=== PATIENT | male | born 1970 | race Caucasian/White ===

== ENCOUNTER 2022-09-07 08:45 | Outpatient (CLI) | payer BC, SELFPAY ==
[2022-09-07 13:50] LABS: Albumin* 4.4 g/dL (3.3-5.0); Chloride* 105 mmol/L (96-114); Potassium* 4.3 mmol/L (3.6-5.1); Sodium* 140 mmol/L (135-149)
[2022-09-07 13:53] LABS: Alanine Aminotransferase* 43 U/L (4-50); Alkaline Phosphatase* 81 U/L (40-150); Aspartate Amino Transferase* 30 U/L (12-35); Bilirubin Total* 0.8 mg/dL (0.1-1.5); Blood Urea Nitrogen* 13 mg/dL (7-30); Calcium* 9.3 mg/dL (8.4-10.6); Carbon Dioxide* 25 mmol/L (20-32); Cholesterol* 170 mg/dL (90-199); Creatinine* 0.8 mg/dL (0.5-1.5); Estimated Glomerular Filt Rate 106 ml/min; Glucose* 100 mg/dL (60-115)
[2022-09-08 14:17] LABS: HDL Cholesterol* 34 mg/dL (>=40); Triglycerides* 122 mg/dL (40-149)
[2022-09-08 15:05] LABS: LDL Cholesterol Calculated 112 mg/dL (<100)
== END 2022-09-07 08:46 | disposition home or self-care (01) ==
PROVIDERS: PCP Family Medicine; Visit Provider Physician Assistant Medical
DX: E78.5 Hyperlipidemia, unspecified (principal)
CPT/HCPCS: 80053; 80061; 82465

== ENCOUNTER 2022-09-29 14:49 | Outpatient (CLI) | payer BC, SELFPAY | END 2022-09-29 14:50 | disposition home or self-care (01) | LOC: LKVREF 14:49 | PROVIDERS: PCP Family Medicine; Visit Provider Family Medicine | DX: Z00.00 Encounter for general adult medical examination without abnormal findings (principal); E78.5 Hyperlipidemia, unspecified; Z12.5 Encounter for screening for malignant neoplasm of prostate | CPT/HCPCS: 84153 ==

== ENCOUNTER 2022-11-08 16:45 | Outpatient (RCR) | payer BC, SELFPAY | END 2023-02-16 23:59 | disposition home or self-care (01) | PROVIDERS: PCP Family Medicine; Visit Provider Family Medicine | DX: M76.52 Patellar tendinitis, left knee (principal); M54.9 Dorsalgia, unspecified; Z51.89 Encounter for other specified aftercare | CPT/HCPCS: 97110; 97140; 97161 ==